=== PATIENT | male | born 1955 | race Caucasian/White ===

== ENCOUNTER → 2024-01-11 12:57 | Outpatient (REF) | payer MEDICARE, SELFPAY | LOC: RAD 12:57 | PROVIDERS: ATTENDING PHYSICIAN Internal Medicine Critical Care Medicine; FAMILY PHYSICIAN Family Medicine | DX: F17.210 Nicotine dependence, cigarettes, uncomplicated (principal) | CPT/HCPCS: 71271 ==

== ENCOUNTER 2024-07-15 01:12 | Inpatient (IN) | payer MEDICARE, SELFPAY ==
[2024-07-14 23:03] VITALS: BP 129/73
[2024-07-14 23:14] VITALS: BMI 26.5
[2024-07-14 23:16] VITALS: BP 152/66
--- NOTE | 2024-07-14 23:19 | ED.GENMED ---
History of Present Illness
General
Chief Complaint: Abdominal Pain
Source: patient and other
Exam Limitations: none
Time Seen by Provider: 07/14/24 23:08
Nursing documentation reviewed up to this point in time: agreed with
History of Present Illness
History of Present Illness:
Pleasant 69-year-old male that presents with upper abdominal pain reminiscent of previous episodes of pancreatitis. For the last 4 days he has been having elevated pain in his upper abdomen. Patient states that he still drinks 2-3 beers per week
but his last drink was at the onset of pain. Patient is a smoker but has cut back dramatically. He has tried to control the pancreatitis with diet, giving up red meat and cream.
Vital signs are stable. Patient not hypoxic
Nursing note reviewed. I agree with nursing documentation up to this point in time.
Home Meds and allergies reviewed.
NUMBER AND COMPLEXITY OF PROBLEMS ADDRESSED AT THE ENCOUNTER
� Chronic conditions affecting care: Pancreatitis, continual alcohol use, light smoker, hypertension, hyperlipidemia
� Acute Exacerbation and/or Progression of Chronic Illness: Pancreatitis
� Differential Diagnosis includes: Pancreatitis, GERD, cholecystitis, gallstone pancreatitis
AMOUNT AND/OR COMPLEXITY OF DATA TO BE REVIEWED AND ANALYZED
I performed an independent evaluation of the following and my interpretation is:
EKG:
Pulse Ox: Not Hypoxic
Decorative Engraver: Sinus Rhythm
CT:
X-rays:
Ultrasound:
Laboratory Studies:
Other:
Review of other/old records:
Clinical information was obtained by an independent historian:
Prescriptions/Medications Considered but not given:
Further testing considered but not performed:
RISK OF COMPLICATIONS AND/OR MORBIDITY OR MORTALITY OF PATIENT MANAGEMENT
Social determinants of health affecting care: Good Social Support
Discussion with other providers:
Escalation of care including admission/observation vs risk of discharge considered: After being observed in the emergency department, patient to be admitted to the hospitalist service for gallstones and mild pancreatitis and
pain control. Receiving lactated Ringer's.
CRITICAL CARE NOTE:
Total Time (exclusive of procedures):
Update:
Past History
Past History
ED Past Medical History: GERD, HTN and Hypercholesterolemia
ED Past Surgical History: Orthopedic
Social History
Tobacco: Former smoker
Alcohol: None
Drug: None
Personal:
Living: with family
Review of Systems
Review of Systems
Allergies reviewed?: Yes
All Other Systems: ROS reviewed and negative except as documented in HPI and ROS
Constitutional: Reports no symptoms
EENT: Reports no symptoms
Respiratory: Reports no symptoms
Cardiac: Reports no symptoms
ABD/GI: Reports abdominal pain; Denies nausea, vomiting, diarrhea or constipated
: Reports no symptoms
Musculoskeletal: Reports no symptoms
Skin: Reports no symptoms
Neurological: Reports no symptoms
Endocrine: Reports no symptoms
Hematologic/Lymphatic: Reports no symptoms
Psychiatric: Reports no symptoms
Phy Exam
General Physical Exam
General Presentation: well appearing and no apparent distress
General Skin: warm and dry
General Habitus: normal
General Mental: alert
General Hydration: appears well hydrated
ENT Exam
ENT Exam: EOMI, pharynx normal, neck supple and normocephalic
Eye Exam
Eye Exam: PERRL, cornea clear and conjunctiva normal
Cardiovascular Exam
Cardiovascular Exam: regular rate/rhythm, no edema, no murmur and normal peripheral pulses
Pulmonary Exam
Pulmonary Exam: lungs clear, no respiratory distress, no rales, no crackles, no rhonchi, no stridor, no wheezing and no cough
Gastrointestinal Exam
Gastrointestinal Exam: normal bowel sounds
Palpation: left upper quadrant: Moderate tenderness and right upper quadrant: Moderate tenderness
Neurological Exam
Neurological Exam: alert, oriented x3, no motor deficits and speech normal
Musculoskeletal Exam
Musculoskeletal Exam: full ROM and no edema
Skin Exam
Skin Exam: normal color, warm/dry, no rash and no petechia
Psychiatric Exam
Psychiatric Exam: normal mood/affect
Course
Orders/Labs/Results
Orders:
Orders
07/14/24 23:15
Urinalysis Reflex To Culture Urgent
Date Specimen was Collected: 07/15/24
Time Specimen was Collected: 00:21
07/14/24 23:18
Lactated Ringers [Lr] 1,000 ml IV BOLUS
07/14/24 23:19
HYDROmorphone [Dilaudid] 1 mg IV NOW STA
Ondansetron Injectable [Zofran] 4 mg IV NOW STA
07/14/24 23:22
Complete Blood Count/With Diff Urgent
Comprehensive Metabolic Panel Urgent
Lactic Acid Urgent
Lipase Urgent
PTT Urgent
Prothrombin Time Urgent
07/15/24 00:00
CT Abd/Pel (IV only)-DH only Urgent
Reason For Exam: upper abd pain, hx pancreatitis
07/15/24 00:20
Morphine Sulfate 4 mg .ROUTE .STK-MED ONE
Ondansetron Injectable [Zofran] 4 mg .ROUTE .STK-MED ONE
07/15/24 00:22
Morphine Sulfate 4 mg IV NOW STA
Ondansetron Injectable [Zofran] 4 mg IV NOW STA
Abnormal Lab Results
07/14/24
23:22
RBC 4.15 L 10^6/uL
(4.70-6.10)
MCV 95.9 H fL
(80.0-94.0)
MCH 33.7 H pg
(27.0-31.0)
Abs Immat Gran (auto) 0.1 H 10^3/uL
(0-0.05)
Absolute Neuts (auto) 7.0 H 10^3/uL
(1.4-6.5)
Absolute Monos (auto) 1.5 H 10^3/uL
(0.1-0.6)
Immature Gran % 0.8 H %
(0-0.5)
Lymphocytes % 18.5 L %
(20.5-51.1)
Monocytes % 13.8 H %
(1.7-9.3)
Glucose 110 H mg/dl
(70-99)
Lipase 324 H U/L
(23-300)
07/14/24 23:22
07/14/24 23:22
Vital Signs
Initial and Last Documented VS:
Initial Vital Signs
Temp Pulse Resp BP Pulse Ox
98.1 F 82 20 129/73 100
07/14/24 23:03 07/14/24 23:03 07/14/24 23:03 07/14/24 23:03 07/14/24 23:03
Last Documented Vital Signs
Temp Pulse Resp BP Pulse Ox
98.1 F 76 18 152/66 100
07/14/24 23:03 07/14/24 23:16 07/14/24 23:16 07/14/24 23:16 07/14/24 23:15
*Pulse Oximetry
Patient hypoxic: no
*Critical Care Note
Total Time (30-74mins, 75-104mins- exclusive of procedures): Not Applicable
Update Note
Update Note:
CT ABDOMEN/PELVIS WITH CONTRAST
IMPRESSION:
1. Mild pericholecystic stranding with small gallstones, may represent acute cholecystitis. Additional mild stranding surrounding the pancreatic head, may represent additional component of pancreatitis (possibly gallstone related). No pseudocyst
formation
2. No bowel obstruction. Normal appendix
Incidentals:
- No obstructive uropathy.
- No hepatic or pancreatic mass.
- No abdominal aortic aneurysm.
- No acute osseous abnormality.
- No acute abnormality within the visualized lungs.
- No acute abnormality within the visualized soft tissues.
I spoke with Dr. Hernández, general surgery who deferred to medicine for admission given that there was gallstones and possible pancreatitis.
ED Attending Note
-
Portions of this chart may have been created with voice recognition software.� Occasional wrong word or��sound alike� substitutions may have occurred due to the inherent limitations of voice recognition software.
Discharge Plan
Departure
Patient Disposition: Admit
Date of Disposition: 07/15/24
Time of Disposition: 00:50
Admit to: Med/Surg
Presentation/result/management discussed w/ accepting MD/DO: Hospitalist
Discharge Problem:
Acute cholecystitis, Pancreatitis, Abdominal pain
Prescriptions:
No Action
atorvastatin 10 MG tablet
10 mg PO DAILY
alprazolam 0.5 MG tablet
0.5 mg PO PRN PRN (Reason: Anxiety)
pantoprazole 40 MG tablet,delayed release (DR/EC)
40 mg PO BID
lisinopril 10 MG tablet
10 mg PO DAILY
metoprolol tartrate 25 MG tablet
25 mg PO BID
fenofibrate 160 MG tablet
160 mg PO DAILY
Referrals:
Milla Coughlin DO [Family Provider] -
Interventions
Interventions:
*Risk Screen - Suicide Last Done: 07/14/24 23:15
*General Assessment Last Done: 07/14/24 23:03
ED- Fall Risk Assessment Last Done: 07/14/24 23:15
*ED COVID-19 Vaccine History Last Done: 07/14/24 23:15
CF-Gwrynj-Pyrlfsifto Assessment Last Done: 07/14/24 23:15
Discharge Date and Time
Print Language: LIBYAN
[2024-07-14] MEDS: ZOFRAN 4 MG IV (23:21)
[2024-07-14] MEDS: DILAUDID 1 MG IV (23:21)
[2024-07-14] MEDS: LR 1000 IV (23:22)
[2024-07-14 23:34] LABS: % Basophils 0.5 % (0-2); % Eosinophils 0.7 % (0-6); % Immature Granulocytes 0.8 % (0-0.5); % Lymphocytes 18.5 % (20.5-51.1); % Monocytes 13.8 % (1.7-9.3); % Neutrophils 65.7 % (42.2-75.2); Absolute Basophils 0.1 10^3/uL (0-0.2); Absolute Eosinophils 0.1 10^3/uL (0-0.7); Absolute Immature Granulocytes 0.1 10^3/uL (0-0.05); Absolute Monocytes 1.5 10^3/uL (0.1-0.6); Hematocrit 39.8 % (39.0-52.0); Mean Corp Hgb Conc. 35.2 g/dL (33.0-37.0); Mean Corpuscular Hgb 33.7 pg (27.0-31.0); Mean Corpuscular Volume 95.9 fL (80.0-94.0); Mean Platelet Volume 8.7 fL (7.4-10.4); Nucleated Red Blood Cells % 0 % (-); Platelet Count 340 10^3/uL (130-400); Red Blood Cell Count 4.15 10^6/uL (4.70-6.10); Red Cell Dist. Width 12.7 % (11.5-14.5); White Blood Cell Count 10.6 10^3/uL (4.8-10.8)
[2024-07-14 23:43] LABS: ALT (SGPT) 16 U/L (0-50); AST (SGOT) 26 U/L (17-59); Alkaline Phosphatase 74 U/L (38-126); Blood Urea Nitrogen 9 mg/dl (9-20); Calcium 9.6 mg/dl (8.4-10.2); Carbon Dioxide 29 mmol/L (22-30); Chloride 104 mmol/L (98-107); Estimated Creatinine Clearance 85 ml/min; Glucose 110 mg/dl (70-99); Lactic Acid 0.9 mmol/L (0.7-2.0); Lipase 324 U/L (23-300); Potassium 3.8 mmol/L (3.5-5.1); Sodium 138 mmol/L (135-145); Total Bilirubin 0.6 mg/dl (0.2-1.3); Total Protein 6.7 g/dl (6.3-8.2); eGFR > 60.00
[2024-07-14 23:53] LABS: INR 0.89; PT 12.3 Sec (11.4-14.6)
[2024-07-14 23:54] LABS: APTT 28.7 Sec (23.4-35.0)
[2024-07-15] VITALS (11 sets, daily range): BP systolic 130–162; BP diastolic 66–79; BMI 25.8
[2024-07-15] MEDS: ZOFRAN 4 MG IV (00:22)
[2024-07-15] MEDS: MORPHINE SULFATE 4 MG IV (00:23)
--- NOTE | 2024-07-15 01:01 | HPS.HSE ---
Family Physician
-
Family Physician: Milla Coughlin
Chief Complaint
-
Abd Pain
History of Present Illness
Patient is a 69y M with PMH significant for hypertension, COPD and prior pancreatitis who presents to ED complaining of abdominal pain. Patient states that he started with epigastric abdominal pain on . This has been intermittent since
that time. no N/V, fevers / chills, etc. He has been eating very little and completely avoiding alcohol since onset of these symptoms. This evening, he ate 1/2 hoagie while watching TV and developed sudden and severe epigastric abdominal pain.
He felt extremely bloated. Patient has had no emesis. He states that his pain is similar to prior episode of pancreatitis - though much more severe.
Medical History
Past Medical History
Past Medical History: Reports Other
Additional Past Medical History:
Hypertension
COPD
Pancreatitis
Skin Cancer
Past Surgical History: Reports Other
Additional Past Surgical History:
Hemorrhoidectomy
Skin Cancer Excision
Rotator Cuff Surgery
Social History
Tobacco: Smoker (Current every day smoker. Approx 1/2 ppd at present. > 40 pack years total use.)
Alcohol: Occasional (Decreased from prior but still has occasional beer. Also drinks non-alcoholic beer.)
Drug: None
Family History
Family History: Not pertinent
Allergies / Home Medications
Allergies reflects when Allergies were last updated in [employer].
Home Medications with original date entered in [employer]
Allergy/Medication List:
Allergies
Allergy/AdvReac Type Severity Reaction Status Date / Time
No Known Allergies Allergy Verified 07/14/24 23:02
Home Medications
alprazolam 0.5 mg tablet 0.5 mg PO PRN PRN Anxiety 05/04/21
atorvastatin 10 mg tablet 10 mg PO DAILY High cholesterol 05/04/21
lisinopril 10 mg tablet 10 mg PO DAILY Blood pressure 05/04/21
metoprolol tartrate 25 mg tablet 25 mg PO BID Blood pressure 05/04/21
pantoprazole 40 mg tablet,delayed release 40 mg PO BID Gastrointestinal issue 05/04/21
fluticasone propionate 115 mcg-salmeterol 21 mcg/actuation HFA inhaler (Advair HFA) 2 puff inhalation BID 07/15/24
Review of Systems
-
History Source: Patient
A 12 point ROS was completed and negative except as noted: Yes
Constitutional: Denies Fever or Chills
Respiratory: Denies Cough or Trouble Breathing
Cardiac: Denies Chest Pain or Palpitations
Abdomen/GI: Reports Abdominal Pain; Denies Nausea, Vomiting or Diarrhea
: Denies Dysuria or Frequency
Musculoskeletal: Denies Joint Pain or Edema
Neurological: Denies Dizzy or Headache
Physical Exam
Vital Signs
Vital Signs
Temp Pulse Resp BP Pulse Ox
98.1 F 76 18 152/66 100
07/14/24 23:03 07/14/24 23:16 07/14/24 23:16 07/14/24 23:16 07/14/24 23:15
Physical Exam
General: Other (69y M in mild distress due to abdominal pain.)
HEENT: Moist mucous membranes
Respiratory: Clear; No Wheezes, Rales or Rhonchi
Cardiac: S1/S2 and Regular Rhythm; No Murmur
GI: Other (Abdomen is distended. Pos tenderness in epigastric and RUQ regions. No rebound / guarding. Pos BS.)
Musculoskeletal: No Clubbing, No Cyanosis and No Edema
Neuro: AO x 3
Laboratory Results
-
07/14/24 23:22
07/14/24 23:22
Laboratory Results
PT 12.3 Sec (11.4-14.6) 07/14/24 23:22
INR 0.89 07/14/24 23:22
APTT 28.7 Sec (23.4-35.0) 07/14/24 23:22
Lactic Acid 0.9 mmol/L (0.7-2.0) 07/14/24 23:22
Total Bilirubin 0.6 mg/dl (0.2-1.3) 07/14/24 23:22
AST 26 U/L (17-59) 07/14/24 23:22
ALT 16 U/L (0-50) 07/14/24 23:22
Alkaline Phosphatase 74 U/L (38-126) 07/14/24 23:22
Lipase 324 U/L (23-300) H 07/14/24 23:22
Impression/Plan
-
A/P: Patient is a 69y M with PMH significant for hypertension and COPD who presents to ED complaining of abdominal pain.
Acute Calculous Cholecystitis
Mild Gallstone Pancreatitis
- Admit for further evaluation and treatment.
- NPO, IVFs, pain control and antiemetics.
- IV abx with Zosyn for now.
- Surgery evaluation for definitive cholecystectomy.
- Follow for clinical improvement.
Benign Hypertension
- Stable. Continue metoprolol with holding parameters.
COPD without Acute Exacerbation
- Stable. Nebs PRN.
- Follow for any changes.
DVT Prophylaxis: SCDs
Code Status: Full
[2024-07-15] MEDS: TORADOL 15 MG IV ×2 (02:50→23:59)
[2024-07-15 03:08] LABS: Urine Bilirubin Negative (Negative); Urine Character Clear (Clear); Urine Color Yellow; Urine Glucose Negative (Negative); Urine Ketone Negative (Negative); Urine Leukocyte Negative (Negative); Urine Nitrite Negative (Negative); Urine Occult Blood Negative (Negative); Urine Specific Gravity 1.015 (<1.030); Urine Urobilinogen Negative (Neg - 1+)
[2024-07-15 03:10] LABS: Urine Albumin Trace (Neg - Trace)
[2024-07-15] MEDS: LR 1000 IV ×2 (04:36→23:50)
[2024-07-15] MEDS: DILAUDID 0.5 MG IV (04:37)
[2024-07-15] MEDS: ZOSYN 50 IV ×4 (05:19→23:41)
[2024-07-15] MEDS: LOPRESSOR 25 MG PO ×2 (07:54→19:45)
[2024-07-15] MEDS: NSS (PRESERVATIVE FREE) 10 ML IV (07:54)
[2024-07-15] MEDS: PROTONIX IV 40 MG IV (07:54)
[2024-07-15] MEDS: ADVAIR HFA 115/21 MCG INHALER 2 PUFF INH ×2 (08:08→20:36)
--- NOTE | 2024-07-15 08:29 | CON.GS ---
Addendum entered and electronically signed by Ash Sparks MD 07/15/24 10:29:
Discussion with radiology. No evidence of stones or sludge on CT scan or ultrasound. Plan for HIDA scan. Patient updated.
Addendum entered and electronically signed by Ash Sparks MD 07/15/24 09:01:
Patient is a 69 yo M with a PMH of HTN, HLD, COPD, h/o pancreatitis, active tobacco use, occasional alcohol use, and s/p hemorrhoidectomy x 2. Mr. Longoria presents with approximately 5 days of persistent epigastric and RUQ abdominal pain. Describes
a severe discomfort and pain which has been worse than his prior attacks. Persistence of symptoms and severity prompted presentation to the ED. Current episodes seem to occur following eating a full gait as well as alcohol intake. No fevers or
chills. No nausea or vomiting. He denies any jaundice, pale stools, or tea colored urine. He has had prior issues with intermittent bloating episodes and discomfort. Difficult to discern if these are directly related to fatty food intake. He
has previously attributed the symptoms to pancreatitis. He has been followed by the GI service for years dating back to 2021 for issues with mild pancreatitis. He has had prior ultrasounds, MRIs, and endoscopic ultrasounds all of which have been
largely unremarkable and demonstrated no evidence of cholelithiasis or biliary sludge. Family history notable for a father postcholecystectomy.
Gen: NAD
Abd: soft, obese, mild tenderness in RUQ and epigastrium, ND, non-peritoneal
Laboratory and CT scan imaging reviewed.
Patient is a 69 yo M p/w upper abdominal discomfort
Differential includes biliary colic/cholecystitis versus pancreatitis. CT scan imaging was reviewed and demonstrates a mildly distended gallbladder, mild wall thickening, no clear evidence of stones, mild inflammation of the pancreatic head (final
read from radiologist pending). Symptoms sound as though they are most likely related to his gallbladder with likely passing small stones or sludge, which may explain many of his prior issues. That being said he has had no evidence of stones or
sludge on prior imaging. Given these discrepancies, as well as no clear evidence of stones on his current CT scan imaging, recommend an ultrasound for further workup. If stones and sludge are present would recommend cholecystectomy. If no stones
or sludge are present then would likely proceed with further workup with a HIDA scan. Repeat labs pending. All questions answered.
-- US abdomen
-- F/u repeat labs
-- NPO, IVF
-- Abx: currently on Zosyn
-- Role and indication for cholecystectomy TBD
Original Note:
Consultation
-
Date/Time Consultation Requested: 07/15/24 8340
Requesting Provider: Chung
Medical History
-
Chief Complaint: RUQ pain
History of Present Illness:
Mr Longoria is a 69 yo male with a h/o COPD, HTN, Tobacco abuse an pancreatitis with prior admission in 2021 with intermittent episodes since that time not requiring admission. Work up at that time was without gallstones on imaging. He has cut back on
ETOH intake and has been following with Dr. Castro as an outpatient. He reports beginning on (07/11), he began having upper abdominal pain radiating across to the RUQ which was different from his prior pancreatitis incidents. He tried fasting
without much relief. Yesterday, he had a hoagie while he was watching the football game which made the pain much worse causing him to present through the ED for evaluation. He denies nausea, vomiting, fevers or chills. He denies stools changes.
Past Medical History
Past Medical History: Cancer (skin), COPD, GERD, HTN, Hypercholesterolemia and Other (Pancreatitis)
Past Surgical History: Orthopedic (rotator cuff) and Other (Hemorrhoidectomy x2)
Social History
Tobacco: Smoker (1/2 ppd)
Alcohol: Occasional (drinks NA beer)
Employment: Employed ([employer])
Family History
Family History: Reviewed & Not Pertinent
Allergies / Home Medications
Allergy/AdvReac Type Severity Reaction Status Date / Time
No Known Allergies Allergy Verified 07/14/24 23:02
�Medication �Instructions �Recorded �Confirmed �Type
alprazolam 0.5 mg tablet 0.5 mg PO PRN PRN Anxiety 05/04/21 07/15/24 History
atorvastatin 10 mg tablet 10 mg PO DAILY High cholesterol 05/04/21 07/15/24 History
lisinopril 10 mg tablet 10 mg PO DAILY Blood pressure 05/04/21 07/15/24 History
metoprolol tartrate 25 mg tablet 25 mg PO BID Blood pressure 05/04/21 07/15/24 History
pantoprazole 40 mg tablet,delayed 40 mg PO BID Gastrointestinal issue 05/04/21 07/15/24 History
release
fluticasone propionate 115 2 puff inhalation BID 07/15/24 07/15/24 History
mcg-salmeterol 21 mcg/actuation
HFA inhaler (Advair HFA)
Review of Systems
-
History Source: Patient
All other systems: Negative unless noted
A 10 point review of systems was completed, and was negative except as per HPI.
Physical Exam
Vital Signs
Temp Pulse Resp BP Pulse Ox
97.9 F 72 16 130/69 97
07/15/24 07:10 07/15/24 08:14 07/15/24 08:14 07/15/24 07:54 07/15/24 08:14
07/14/24 07/15/24 07/16/24
06:59 06:59 06:59
Actual Weight 83.733 kg
Body Mass Index (BMI) 25.8
Lab Results
WBC 10.6 10^3/uL (4.8-10.8) 07/14/24 23:22
Hgb 14.0 g/dL (13.0-18.0) 07/14/24 23:22
Hct 39.8 % (39.0-52.0) 07/14/24 23:22
Plt Count 340 10^3/uL (130-400) 07/14/24 23:22
Abs Immat Gran (auto) 0.1 10^3/uL (0-0.05) H 07/14/24 23:22
Neutrophils % 65.7 % (42.2-75.2) 07/14/24 23:22
Physical Exam
General: Well Developed and Well Nourished
HEENT: Moist Mucous Membranes
Respiratory: Non Labored Respirations
GI: Soft, Tender (RUQ) and Distended
Skin: Warm and Dry
Neuro: Awake, Alert and AO x 3
Psych: Calm
Data Reviewed
-
CT Scan: Image Personally Visualized and interpreted, Report Reviewed by me (preliminary read ), Discussed with Physician and Discussed with Patient
Labs: Labs Reviewed by me, Discussed with Physician, Discussed with Patient and Discussed with Family
Old Records: Reviewed
Assessment / Plan
-
69 yo male with a prior history of pancreatitis seen presenting with 3-4 days of RUQ pain which worsened after a fatty meal. Tenderness present on exam. ? cholecystitis on CT imaging with mild pericholecystic stranding. No obvious cholelithiasis
present on CT. Some pancreatic stranding as well. Official CT read is pending. Prior imaging from 2021 without cholelithiasis present. AFVSS. No leukocytosis or elevation in bilirubin on presentation, mildly elevated lipase. Labs for today are
pending.
--Check US in further evaluation, made need HIDA as well pending US results
--Keep NPO
--Await AM labs
--Continue ABX
Surgical plan pending further imaging
[2024-07-15 09:09] LABS: ALT (SGPT) 26 U/L (0-50); AST (SGOT) 83 U/L (17-59); Albumin 3.2 g/dl (3.5-5.0); Alkaline Phosphatase 62 U/L (38-126); Blood Urea Nitrogen 9 mg/dl (9-20); Calcium 8.9 mg/dl (8.4-10.2); Carbon Dioxide 29 mmol/L (22-30); Chloride 105 mmol/L (98-107); Direct Bilirubin 0.3 mg/dl (0.0-0.4); Estimated Creatinine Clearance 74 ml/min; Glucose 93 mg/dl (70-99); Lipase 97 U/L (23-300); Potassium 4.4 mmol/L (3.5-5.1); Sodium 137 mmol/L (135-145); Total Protein 5.5 g/dl (6.3-8.2); eGFR > 60.00
[2024-07-15 09:12] LABS: Hematocrit 35.3 % (39.0-52.0); Hemoglobin 12.3 g/dL (13.0-18.0); Mean Corp Hgb Conc. 34.8 g/dL (33.0-37.0); Mean Corpuscular Hgb 33.3 pg (27.0-31.0); Mean Corpuscular Volume 95.7 fL (80.0-94.0); Mean Platelet Volume 8.9 fL (7.4-10.4); Platelet Count 271 10^3/uL (130-400); Red Blood Cell Count 3.69 10^6/uL (4.70-6.10); Red Cell Dist. Width 12.7 % (11.5-14.5); White Blood Cell Count 7.3 10^3/uL (4.8-10.8)
--- NOTE | 2024-07-15 12:30 | PTCARENOTE ---
[facility] note: requested to give Morphine sulfate IV for HIDA scan. patient in Nuclear medicine. pt identified. VS checked. At 1221: pre med VSS BP 111/72 HR 72 RR 15 SPO2 96% RA. Allergies confirmed. Right AC PIV flushed and patent. Morphine 2mg IV
given per order. Tolerated well. Post med vitals: BP 127/65 HR 77 RR 14 SPO2 95% RA.
--- NOTE | 2024-07-15 13:13 | W.PN.HOSP.TC ---
Today's Communication/Plan
-
Assessment / Plan
Assessment / Plan
NAD
Scleral Anicteric
MMM
No JVD
CTABL
RRR, S1/S2
Soft, RUQ [place], ND, BS+
Warm, Dry
AAOx3
Calm
Acute calculus cholecystitis, general surgery recommending HIDA scan, ordered, n.p.o., may potentially go to the OR
Hypertension continue antihypertensive
GERD continue PPI
Hyperlipidemia continue statin
COPD without acute exacerbation continue MDIs as needed
Anticipated Discharge: 24 - 48 hours
Subjective/Interval History
-
Date of Service: July 15, 2024
Seen and examined. No new complaints. No events.
Right upper quadrant abdominal pain coming and going
Objective Data
-
Labs:
Laboratory Results
07/15/24
07:40
WBC 7.3
Hgb 12.3 L
Hct 35.3 L
Plt Count 271 D
Sodium 137
Potassium 4.4
Chloride 105
Carbon Dioxide 29
BUN 9
Creatinine 1.0
Glucose 93
Calcium 8.9
Total Bilirubin 1.0
AST 83 H
ALT 26
Alkaline Phosphatase 62
Vital Signs:
Vital Signs
Temp Pulse Resp BP Pulse Ox
97.9 F 72 16 130/69 97
07/15/24 07:10 07/15/24 08:14 07/15/24 08:14 07/15/24 07:54 07/15/24 08:14
--- NOTE | 2024-07-15 13:40 | W.PN.SURGUPD ---
Surgical Update
Surgical Update
HIDA scan shows nonvisualization of the gallbladder. Options for management were relayed. Pros and cons, risks and benefits were discussed. Recommend laparoscopic cholecystectomy. Mr. Longoria agrees to proceed.
Plan for laparoscopic cholecystectomy. The procedure itself, as well as the risks, benefits, and alternatives was discussed. Specifically, we discussed the risks of bleeding, infection, injury to surrounding structures (bowel, bile ducts), CBD
injury, need for open procedure. Typical postprocedural recovery including the 10 to 20% risk of fluctuations in GI function was discussed. All questions answered.
-- Laparoscopic cholecystectomy with IOC
-- NPO, IVF
-- Antibiotics: Zosyn
--- NOTE | 2024-07-15 13:42 | W.SUR.PREOP ---
Pre-Operative Surgical Note
-
I have examined this patient prior to the performance of the scheduled procedure.
The patient's condition is unchanged from the time of the current History and
Physical and the patient is able to undergo the scheduled procedure.
--- NOTE | 2024-07-15 15:39 | CM ---
Adm dx - acute calculous cholecystitis
Met with pt at bedside
Pt reports he lives alone in a 1 story home; 4 steps to enter
Independent at baseline, drives
DME - rolling walker
SNF - denies past hx
HH - [facility] in past
Has ride at discharge
PCP- Milla Coughlin
Pharm - [facility]
For OR today - laparoscopic cholecystectomy
Plan - anticipate home no needs when medically ready
--- NOTE | 2024-07-15 17:55 | W.IMMPOSTOP ---
Surgical Immed Post Op Note
-
Primary Surgeon: Bridger
Assisting Surgeon: BRITTON Pinedo
Pre-op Diagnosis: Acute cholecystitis
Post-op Diagnosis: Acute on chronic cholecystitis
Procedure Performed: Laparoscopic cholecystectomy with IOC
Anesthesia Type: General
Specimen / Cultures:
1. Gallbladder
Estimated Blood Loss: 11 cc
Complications: None
Operative Findings:
1. Distended, hydropic GB with clear bile and significant fatty adhesions
2. Critical view of safety
3. IOC without filling defects
4. Artery taken with clips, duct with stapler
[2024-07-15] MEDS: ROXICODONE 5 MG PO (20:33)
[2024-07-16] MEDS: XANAX 0.5 MG PO (00:01)
[2024-07-16] MEDS: LR IV (00:09)
[2024-07-16 03:25] VITALS: BP 108/47
[2024-07-16] MEDS: ZOSYN 50 IV (04:59)
[2024-07-16 05:50] LABS: Hematocrit 33.5 % (39.0-52.0); Hemoglobin 11.4 g/dL (13.0-18.0); Mean Corpuscular Volume 97.1 fL (80.0-94.0); Platelet Count 238 10^3/uL (130-400); Red Blood Cell Count 3.45 10^6/uL (4.70-6.10); Red Cell Dist. Width 12.5 % (11.5-14.5); White Blood Cell Count 8.8 10^3/uL (4.8-10.8)
[2024-07-16 06:00] VITALS: BMI 27.0
[2024-07-16] MEDS: TORADOL 15 MG IV (06:03)
[2024-07-16 06:12] LABS: ALT (SGPT) 58 U/L (0-50); AST (SGOT) 99 U/L (17-59); Albumin 2.9 g/dl (3.5-5.0); Alkaline Phosphatase 62 U/L (38-126); Blood Urea Nitrogen 9 mg/dl (9-20); Calcium 8.3 mg/dl (8.4-10.2); Carbon Dioxide 27 mmol/L (22-30); Chloride 103 mmol/L (98-107); Estimated Creatinine Clearance 68 ml/min; Glucose 112 mg/dl (70-99); Potassium 3.8 mmol/L (3.5-5.1); Sodium 135 mmol/L (135-145); Total Bilirubin 0.9 mg/dl (0.2-1.3); Total Protein 5.1 g/dl (6.3-8.2); eGFR > 60.00
[2024-07-16] MEDS: ADVAIR HFA 115/21 MCG INHALER 2 PUFF INH (07:17)
[2024-07-16 07:21] VITALS: BP 116/61
--- NOTE | 2024-07-16 07:50 | W.PN.GS2 ---
Today's Communication / Plan
-
-- LFD
-- Pain control: Tylenol, Toradol, Oxycodone
-- HLIV
-- Abx: none further needed
-- OK for DC from surgical perspective when tolerates diet and pain controlled
-- DC instructions updated
Assessment / Plan
-
Patient is a 69 yo M POD#1 s/p laparoscopic cholecystectomy with IOC
AVSS
Labs reviewed with normal WBC, stable Hb, normal electrolytes and renal function, normal bilirubin, mild transaminitis likely related to liver manipulation
Recovering well. No major postoperative concerns. Operative findings reviewed and consistent with inflammation of the gallbladder with a likely more chronic picture which may explain his previous episodes of pancreatitis.
-- LFD
-- Pain control: Tylenol, Toradol, Oxycodone
-- HLIV
-- Abx: none further needed
-- Home meds
-- DVT: Lovenox
-- GI: PPI
-- OK for DC from surgical perspective when tolerates diet and pain controlled
-- DC instructions updated
Subjective Data
-
Date of Service: July 16, 2024
Reports abdominal soreness, different from presenting symptoms. Bloating has resolved. No nausea. Passing flatus and sensation. Afebrile.
Objective Data
-
Intake and Output
07/15/24 07/16/24 07/17/24
06:59 06:59 06:59
Intake Total 1779
Balance 1779
Intake:
Oral fluids 480 / 480
IV fluids (Total) 1200 / 1200
IV piggybacks 100 / 100
Other:
Number of approximated MODERATE 5
amounts of urine
Vital Signs
Temp Pulse Resp BP Pulse Ox
97.9 F 72 16 116/61 95
07/16/24 07:21 07/16/24 07:21 07/16/24 07:21 07/16/24 07:21 07/16/24 07:21
Lab Results
07/16/24 05:16
07/16/24 05:16
Calcium 8.3 mg/dl (8.4-10.2) L 07/16/24 05:16
Total Bilirubin 0.9 mg/dl (0.2-1.3) 07/16/24 05:16
Direct Bilirubin 0.3 mg/dl (0.0-0.4) 07/15/24 07:40
AST 99 U/L (17-59) H 07/16/24 05:16
ALT 58 U/L (0-50) H 07/16/24 05:16
Alkaline Phosphatase 62 U/L (38-126) 07/16/24 05:16
Total Protein 5.1 g/dl (6.3-8.2) L 07/16/24 05:16
Albumin 2.9 g/dl (3.5-5.0) L 07/16/24 05:16
Physical Exam
-
Gen: NAD
Abd: soft, tender to palpation in upper abdomen, obese, ND, non-peritoneal, incisions c/d/i - no erythema, ecchymosis or drainage
Patient has a johnston catheter: No
Patient has a central line: No
[2024-07-16] MEDS: ROXICODONE 5 MG PO (08:54)
[2024-07-16] MEDS: PROTONIX IV 40 MG IV (08:55)
[2024-07-16] MEDS: NSS (PRESERVATIVE FREE) 10 ML IV (08:55)
[2024-07-16] MEDS: LOPRESSOR 25 MG PO (08:55)
--- NOTE | 2024-07-16 10:54 | W.PN.HOSP.TC ---
Today's Communication/Plan
-
DC home
More than 30 minutes spent in discharge including
Final examination of the patient
Summarizing hospital stay
Instructions for continuing care to all relevant caregivers
Preparation of discharge records, prescriptions, and referral forms
Total time spent (in minutes): 33m
Assessment / Plan
Assessment / Plan
NAD
Scleral Anicteric
MMM
No JVD
CTABL
RRR, S1/S2
Soft, tenderness over surgical/laparoscopic incision lines, ND, BS+
Warm, Dry
AAOx3
Calm
Acute calculus cholecystitis, s/p lap alicja with general surgery. Tolerated procedure well.
-Follow surgical recommendations for wound/glue care
-Pain fever greater than 100.5 call outpatient surgeon
-Follow-up with surgery as outpatient
Hypertension continue antihypertensive
GERD continue PPI
Hyperlipidemia continue statin
COPD without acute exacerbation continue MDIs as needed
Discharge home
Anticipated Discharge: Today
Subjective/Interval History
-
Date of Service: July 16, 2024
Seen and examined. No new complaints. No acute overnight events.
Tolerated surgery well
Had a bowel movement this a.m.
Tolerated diet well.
Intermittent abdominal pain however improved from before
Objective Data
-
Labs:
Laboratory Results
07/16/24
05:16
WBC 8.8
Hgb 11.4 L
Hct 33.5 L
Plt Count 238
Sodium 135
Potassium 3.8
Chloride 103
Carbon Dioxide 27
BUN 9
Creatinine 1.1
Glucose 112 H
Calcium 8.3 L
Total Bilirubin 0.9
AST 99 H
ALT 58 H
Alkaline Phosphatase 62
Vital Signs:
Vital Signs
Temp Pulse Resp BP Pulse Ox
97.9 F 72 16 116/61 95
07/16/24 07:21 07/16/24 08:55 07/16/24 07:21 07/16/24 08:55 07/16/24 07:21
I&O
07/15/24 07/16/24 07/17/24
06:59 06:59 06:59
Intake Total 1779
Balance 1779
--- NOTE | 2024-07-16 10:56 | W.DCSUMMARY ---
Discharge Summary
Discharge Data
Date of Admission: 07/15/24
Date of Discharge: 07/16/24
-
Pending Results: No
Hospital Course
69y M with PMH significant for hypertension, COPD and prior pancreatitis
Presented with abdominal pain found to have acute calculus cholecystitis evaluated by surgery recommended HIDA scan which did not demonstrate common bile duct obstruction. Was taken to the OR for lap alicja tolerated procedure well. Will need to
follow-up with surgery as outpatient
Call your surgeon if you have a fever >100.5, nausea with vomiting or worsening pain, yellowing of the eyes or skin
Discharge Plan
-
Patient Disposition: Home (Routine Discharge)
Discharge Diagnosis/Procedures: Laparoscopic cholecystectomy with cholangiogram
Condition: Good
Diet: Regular and Low Fat
Additional Diets: Eat a low fat diet if you have loose stools or crampy abdominal pain after surgery
Activity: No strenuous activity
Additional Activity: Do not lift over 20 lbs for the next 2-3 weeks
Driving Restrictions: No driving for 24 hours
Bathing Restrictions: OK to Shower
Wound Care: Allow the glue to flake off your wounds over the next 2-3 weeks on its own. Avoid scrubbing or picking the glue off. Do not soak in a tub or swim for the next 2 weeks.
Activity Restrictions/Additional Instructions:
Presented with abdominal pain found to have acute calculus cholecystitis evaluated by surgery recommended HIDA scan which did not demonstrate common bile duct obstruction. Was taken to the OR for lap alicja tolerated procedure well. Will need to
follow-up with surgery as outpatient
Call your surgeon if you have a fever >100.5, nausea with vomiting or worsening pain, yellowing of the eyes or skin
Referrals:
Ash Sparks MD [Active] - in two to four weeks
Milla Coughlin DO [Family Provider] -
Prescriptions:
New
acetaminophen 325 mg tablet
650 mg PO Q4HPRN PRN (Reason: mild pain) Qty: 1 0RF
ibuprofen 200 mg tablet
400 - 600 mg PO Q6HPRN PRN (Reason: moderate pain) Qty: 1 0RF
oxycodone 5 mg tablet
5 mg PO Q4HPRN PRN (Reason: breakthrough/severe pain) Qty: 10 0RF
Continued
atorvastatin 10 MG tablet
10 mg PO DAILY
alprazolam 0.5 MG tablet
0.5 mg PO PRN PRN (Reason: Anxiety)
pantoprazole 40 MG tablet,delayed release (DR/EC)
40 mg PO BID
lisinopril 10 MG tablet
10 mg PO DAILY
metoprolol tartrate 25 MG tablet
25 mg PO BID
fluticasone propion-salmeterol [Advair HFA] 115-21 mcg/actuation Hfa Aerosol Inhaler
2 puff INHALATION BID
Discharge Orders:
Discharge Patient (As Directed); Ordered 07/16/24
Ordered By: Linden Chicas
Discharge Date and Time
Print Language: CZECH
[2024-07-16 11:16] VITALS: BP 114/59
--- NOTE | 2024-07-16 11:35 | CM ---
Chart reviewed. Met with pt
Pt for discharge today
Reports will have ride home
Given IMM
Plan - home - no needs
== END 2024-07-16 15:00 | disposition home or self-care (01) | DRG 418 ==
LOC: 2 SOUTH 01:12
PROVIDERS: Radiology Neuroradiology; ADMITTING PHYSICIAN Hospitalist; ATTENDING PHYSICIAN Hospitalist; CONSULT PHYSICIAN Surgery; EMERGENCY PHYSICIAN Student in an Organized Health Care Education/Training Program; FAMILY PHYSICIAN Family Medicine
PROC: BF101ZZ Fluoroscopy of Bile Ducts using Low Osmolar Contrast (ICD-10-PCS; 2024-07-15)
PROC: 0FT44ZZ Resection of Gallbladder, Percutaneous Endoscopic Approach (ICD-10-PCS; 2024-07-15)
DX: K80.12 Calculus of gallbladder with acute and chronic cholecystitis without obstruction (principal); K82.1 Hydrops of gallbladder; K86.1 Other chronic pancreatitis; I10 Essential (primary) hypertension; J44.9 Chronic obstructive pulmonary disease, unspecified; E78.00 Pure hypercholesterolemia, unspecified; F17.210 Nicotine dependence, cigarettes, uncomplicated; F41.9 Anxiety disorder, unspecified; K21.9 Gastro-esophageal reflux disease without esophagitis; K76.0 Fatty (change of) liver, not elsewhere classified; Z79.899 Other long term (current) drug therapy; Z79.51 Long term (current) use of inhaled steroids
CPT/HCPCS: 88304; 74177; 74300; 76000; 76705; 78226; 80053; 81003; 82248; 83605; 83690; 85025; 85027; 85610; 85730; 94640; 96361; 96374; 96375; 96376; 99285; 99406; A9537; Q9967

== ENCOUNTER → 2025-01-31 13:54 | Outpatient (REF) | payer MEDICARE, SELFPAY | LOC: RAD 13:54 | PROVIDERS: ATTENDING PHYSICIAN Internal Medicine Critical Care Medicine; FAMILY PHYSICIAN Family Medicine | DX: F17.210 Nicotine dependence, cigarettes, uncomplicated (principal) | CPT/HCPCS: 71271 ==

== ENCOUNTER → 2025-04-05 11:32 | Outpatient (REF) | payer MEDICARE, SELFPAY | LOC: PAVMRI 11:32 | PROVIDERS: ATTENDING PHYSICIAN Orthopaedic Surgery; FAMILY PHYSICIAN Family Medicine | DX: S43.422A Sprain of left rotator cuff capsule, initial encounter (principal) | CPT/HCPCS: 73221 ==